=== PATIENT | female | born 2000 | race Caucasian/White ===

== ENCOUNTER 2020-12-28 09:47 | Emergency (ER) | payer BC, SELFPAY ==
--- NOTE | ~2020-12-28 | XR_ITS ---
EXAMINATION: XR KNEE, RIGHT CLINICAL INFORMATION: Right knee pain COMPARISON: None TECHNIQUE: Two views of the right knee. FINDINGS: No fracture or dislocation. Tiny suprapatellar joint effusion. Joint spaces are well-maintained. No significant degenerative changes. No focal soft tissue swelling of the anterior knee. XR/XR knee RT 2V IMPRESSION: Tiny suprapatellar joint effusion.
[2020-12-28 09:51] VITALS: BP 127/80; PULSE 88; RESP 16; TEMP 36.6; O2SAT 98; BMI 22.8
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
== END 2020-12-28 10:51 | disposition home or self-care (01) ==
PROVIDERS: Emergency Provider Emergency Medicine; PCP Internal Medicine
DX: S83.91XA Sprain of unspecified site of right knee, initial encounter (principal); M25.461 Effusion, right knee; V86.56XA Driver of dirt bike or motor/cross bike injured in nontraffic accident, initial encounter; Y93.89 Activity, other specified; Y92.9 Unspecified place or not applicable; Y99.9 Unspecified external cause status
CPT/HCPCS: 73560; 99283; 99284